=== PATIENT | female | born 2000 | race Caucasian/White ===

== ENCOUNTER → 2023-10-15 07:54 | Outpatient (REF) | payer OTHER, SELFPAY | LOC: RAD 07:54 | PROVIDERS: ATTENDING PHYSICIAN Nurse Practitioner Adult Health | DX: M25.551 Pain in right hip (principal); R93.89 Abnormal findings on diagnostic imaging of other specified body structures | CPT/HCPCS: 72193; Q9967 ==

== ENCOUNTER → 2024-09-05 13:50 | Outpatient (REF) | payer OTHER, SELFPAY | LOC: RAD 13:50 | PROVIDERS: ATTENDING PHYSICIAN Nurse Practitioner Adult Health | DX: M25.571 Pain in right ankle and joints of right foot (principal); M25.561 Pain in right knee | CPT/HCPCS: 73564; 73610 ==

== ENCOUNTER → 2025-01-29 09:28 | Outpatient (REF) | payer OTHER, SELFPAY | LOC: MRI 3T 09:28 | PROVIDERS: ATTENDING PHYSICIAN Nurse Practitioner Adult Health | DX: M25.561 Pain in right knee (principal) | CPT/HCPCS: 73721 ==